=== PATIENT | female | born 1970 | race Two or more races ===

== ENCOUNTER 2019-04-07 12:54 | Inpatient (IN) | payer OTHER ==
[~2019-04-07] VITALS: Ht 154.9 cm; Wt 62.6 kg
== END 2019-04-25 17:02 | disposition home or self-care (01) | DRG 334 ==
LOC: SURH 04-15 11:00 → O/R 04-22 08:38 → SURG 04-22 08:38 → SURH 04-22 11:00 → SURG 04-22 15:22
PROVIDERS: ADMIT Colon & Rectal Surgery
PROC: 07TB4ZZ Resection of Mesenteric Lymphatic, Percutaneous Endoscopic Approach (ICD-10-PCS; 2019-04-22)
PROC: 0DJD8ZZ Inspection of Lower Intestinal Tract, Via Natural or Artificial Opening Endoscopic (ICD-10-PCS; 2019-04-22)
PROC: 0DTP4ZZ Resection of Rectum, Percutaneous Endoscopic Approach (ICD-10-PCS; principal; 2019-04-22 13:00)
DX: C20 Malignant neoplasm of rectum (principal); D64.89 Other specified anemias

== ENCOUNTER 2019-05-04 09:52 | Emergency (ER) | payer OTHER ==
[~2019-05-04] VITALS: Ht 154.9 cm; Wt 58.1 kg
[2019-05-04] MEDS ORDERED: PERCOCET 10-321 EACH (10:22)
[2019-05-04] MEDS ORDERED: INTESTINEX680 M1 (10:22)
== END 2019-05-04 13:13 | disposition home or self-care (01) ==
LOC: ER 09:52
DX: K52.9 Noninfective gastroenteritis and colitis, unspecified (principal)

== ENCOUNTER 2019-06-04 05:58 | Day surgery (SDC) | payer OTHER ==
[~2019-06-04 05:58] MED LIST: INTESTINEX680 M1; PERCOCET 10-321 EACH
== END 2019-06-04 14:20 | disposition home or self-care (01) ==
LOC: CIR.AMB 05:58
DX: C20 Malignant neoplasm of rectum (principal)
CPT/HCPCS: 36561; C1751

== ENCOUNTER 2019-06-10 20:24 | Emergency (ER) | payer OTHER ==
[~2019-06-10] VITALS: Ht 154.9 cm; Wt 54.0 kg
[2019-06-11] MEDS ORDERED: LEVSIN/SL0.125 MG SL (06:10)
== END 2019-06-11 06:23 ==
LOC: ER 20:24
DX: K59.09 Other constipation (principal); R10.84 Generalized abdominal pain

== ENCOUNTER 2019-09-26 10:29 | Emergency (ER) | payer OTHER ==
[~2019-09-26] VITALS: Ht 154.9 cm; Wt 48.5 kg
[~2019-09-26 10:29] MED LIST changes: +LEVSIN/SL0.125 MG SL
== END 2019-09-27 15:22 | disposition home or self-care (01) ==
LOC: ER 10:29
DX: R10.31 Right lower quadrant pain (principal); C20 Malignant neoplasm of rectum; K59.09 Other constipation

== ENCOUNTER 2019-12-03 06:00 | Day surgery (SDC) | payer OTHER | END 2019-12-03 10:21 | disposition home or self-care (01) | LOC: CIR.AMB 06:00 → ADM 11:45 → CIR.AMB 12:30 | DX: C20 Malignant neoplasm of rectum (principal) ==

== ENCOUNTER 2020-04-16 05:58 | Day surgery (SDC) | payer OTHER | END 2020-04-16 11:30 | disposition home or self-care (01) | LOC: AMB-ENDOS 05:58 → ADM 13:00 | PROVIDERS: ATTEND Colon & Rectal Surgery | DX: C20 Malignant neoplasm of rectum (principal); K62.4 Stenosis of anus and rectum; Z20.828 Contact with and (suspected) exposure to other viral communicable diseases ==